=== PATIENT | male | born 1985 | race Caucasian/White ===

== ENCOUNTER 2018-12-17 12:50 | Emergency (ER) | payer OTHER ==
[2018-12-17] MEDS ORDERED: Proparacaine 0.5% Ophth Soln 15 ML Bottle EYELF ONE (13:14)
[2018-12-17] MEDS ORDERED: Fluorescein 1 MG Ophth Strip EYELF ONE (13:14)
--- NOTE | 2018-12-17 13:57 | EDM.PDOC ---
<Susie Lowe Bridgett - Last Filed: 12/17/18 14:40> ED HPI GENERAL MEDICAL PROBLEM - General Chief Complaint: Eye Problems Stated Complaint: CHEMICALS IN LT EYE Time Seen by Provider: 12/17/18 13:21 Source of Information: Reports: Patient, RN Notes Reviewed History Limitations: Reports: No Limitations - History of Present Illness INITIAL COMMENTS - FREE TEXT/NARRATIVE: Patient is a 33-year-old male who presents to the ED for evaluation of a left eye injury. He states that yesterday while at work at around 2:30 PM he was working on a pump, and some salt water/methane/oil mixture splashed into his face, this hip before had initially but tripped down into his left eyes. He states he immediately took the contact out at this time. And irrigated the eye with contact solution as much as possible. He relates that today the eye is very reddened, irritated, and his vision is very blurry, he states that he is looking as if he is under water. Patient notes that his vision normally is around 20/40. - Related Data Allergies Allergy/AdvReac Type Severity Reaction Status Date / Time No Known Allergies Allergy Verified 12/17/18 13:18 Home Meds: Home Meds Doxycycline [Vibramycin] 100 mg PO BID #12 tab 12/17/18 [Rx] Tobramycin/Dexamethasone [Tobradex Eye Drops] 2 drop OP QID #1 bottle 12/17/18 [ Rx] Tobramycin/Dexamethasone [Tobradex Eye Ointment] 3.5 gm OP QPM #1 tube 12/17/18 [Rx] ED ROS GENERAL - Review of Systems Review Of Systems: See Below Constitutional: Reports: No Symptoms HEENT: Reports: Eye Pain, Glasses (or contacts), Vision Change (blurred vision in left eye) Respiratory: Reports: No Symptoms Cardiovascular: Reports: No Symptoms Endocrine: Reports: No Symptoms GI/Abdominal: Reports: No Symptoms : Reports: No Symptoms Musculoskeletal: Reports: No Symptoms Skin: Reports: No Symptoms Neurological: Reports: No Symptoms Psychiatric: Reports: No Symptoms Hematologic/Lymphatic: Reports: No Symptoms Immunologic: Reports: No Symptoms ED EXAM GENERAL W FULL EYE - Physical Exam Exam: See Below Exam Limited By: No Limitations General Appearance: Alert, WD/WN, No Apparent Distress Eye Exam: Right Eye: Normal Inspection, Left Eye: Conjunctival Injection, Vision Changes (blurry), Bilateral Eye: EOMI, PERRL Eyelids: Bilateral: Normal Appearance Conjunctiva & Sclera: Right: Normal Appearance, Left: Injected Cornea Exam: Right: Normal Appearance, Left: Corneal Ulcer (to mid cornea, slightly to 3 0'clock laterally), Cloudy Cornea (very mild haziness noted) Extraocular Movements: Bilateral: Intact Pupils: Normal Accommodation Pupillary Size: Bilateral: 3 mm Pupillary Reaction: Bilateral: Brisk Anterior Chamber: Bilateral: Normal Appearance Respiratory/Chest: No Respiratory Distress, Lungs Clear, Normal Breath Sounds, No Accessory Muscle Use, Chest Non-Tender Cardiovascular: Normal Peripheral Pulses, Regular Rate, Rhythm, No Murmur Extremities: Normal Inspection, Normal Capillary Refill Neurological: Alert, Oriented, CN II-XII Intact (grossly), Normal Cognition, No Motor/Sensory Deficits Psychiatric: Normal Affect, Normal Mood Skin Exam: Warm, Dry, Intact, Normal Color, No Rash Course - Vital Signs Last Recorded V/S: Last Vital Signs Temp 36.7 C 12/17/18 13:21 Pulse 65 12/17/18 13:21 Resp 20 12/17/18 13:21 BP 121/66 12/17/18 13:21 Pulse Ox 98 12/17/18 13:21 - Orders/Labs/Meds Meds: Medications Discontinued Medications Generic Name Dose Route Start Last Admin Trade Name Stephenie PRN Reason Stop Dose Admin Doxycycline Hyclate 200 mg 12/17/18 14:17 12/17/18 14:31 Vibramycin PO 12/17/18 14:18 200 mg ONETIME ONE Administration Fluorescein Sodium 1 mg 12/17/18 13:14 12/17/18 14:31 Ful-Bridget EYELF 12/17/18 13:15 Not Given ONETIME ONE Proparacaine HCl 2 ml 12/17/18 13:14 12/17/18 13:46 Proparacaine 0.5% Ophth Soln EYELF 12/17/18 13:15 2 ml ONETIME ONE Administration Tobramycin/Dexamethasone 10 ml 12/17/18 14:16 12/17/18 14:31 Tobradex Ophth Susp EYELF 12/17/18 14:17 Not Given ONETIME ONE - Re-Assessments/Exams Free Text/Narrative Re-Assessment/Exam: 12/17/18 14:24 Patient's since a the ED for evaluation of a left eye chemical injury. Upon just visual inspection and exam, his cornea was slightly hazier than the right, and there was a white-markel lesion noted to the mid cornea just lateral to 3 o' clock position. The pH was checked, and both eyes were within normal limits. I did examine the patient's eyeball with a slit lamp, with Dr. Jung's direction, he appreciated a corneal ulcer at this time, with likely chemical burn-type involvement due to the nature of the spill in the eye. He did phone Dr. Parks, perinatal social worker in [place], and she recommends TobraDex drops 4 times daily, TobraDex ointment nightly for the next couple days and doxycycline twice a day for 7 days, as she states this hasn't anti-inflammatory effect in the cornea. Dr. Parks was kind enough to provide the patient with her cell phone number, and she states that if he gets to [facility] she would go to the office and evaluate him. Patient will be given a prescription for the TobraDex ointment and the continuation of the doxycycline. Departure - Departure Time of Disposition: 14:28 Disposition: Home, Self-Care 01 Condition: Fair Clinical Impression: Chemical burn due to alkali, cornea, left Qualifiers: Encounter type: initial encounter Qualified Code(s): T54.3X1A - Toxic effect of corrosive alkalis and alkali-like substances, accidental (unintentional), initial encounter - Discharge Information *PRESCRIPTION DRUG MONITORING PROGRAM REVIEWED*: No *COPY OF PRESCRIPTION DRUG MONITORING REPORT IN PATIENT DALI: No Prescriptions: Doxycycline [Vibramycin] 100 mg PO BID #12 tab Tobramycin/Dexamethasone [Tobradex Eye Drops] 2 drop OP QID #1 bottle Tobramycin/Dexamethasone [Tobradex Eye Ointment] 3.5 gm OP QPM #1 tube Instructions: Chemical Burn of the Eyes, Adult Referrals: PCP,None [Primary Care Provider] - Forms: ED Department Discharge, ED Return to Work/School Form Additional Instructions: You were evaluated in the ER today for your chemical splash into her left eye. You were examined, and demonstrated a alkaline burn of your left cornea. This resulted in an ulceration of the left cornea. Management of this is an antibiotic/steroid eyedrop called TobraDex, please instill 2 drops 4 times daily until evaluated by ophthalmology, TobraDex ointment, please apply 1 cm ribbon to lower eyelid nightly until told otherwise by ophthalmology, and doxycycline which is an antibiotic, 100 mg twice a day for the next 7 days. These prescriptions were electronically sent to the [facility] located near [facility] in [facility] this pharmacy is open from 12 to 4 PM only today, you will need to go there during this timeframe to obtain these prescriptions. Dr. Parks, who is an perinatal social worker in [place], told us that she would be able to evaluate you when you get to [facility]. Her telephone number is [phone]. She told us to have you call her when you get to [place] and she 'll Beach at the office for evaluation. When discharged from this hospital, please obtain your prescriptions and drive to [place] or have someone drive you if you do not feel that you can drive appropriately due to the blurry vision in your left eye. <Adam Jung - Last Filed: 12/17/18 16:25> ED HPI GENERAL MEDICAL PROBLEM Left Eye Pain Score (Numeric/FACES): 4 Past Medical History Dermatologic History: Reports: Other (See Below) - Past Surgical History Dermatological Surgical History: Reports: Skin Graft Social & Family History - Tobacco Use Smoking Status *Q: Current Every Day Smoker Years of Tobacco use: 14 Packs/Tins Daily: 0.8 - Caffeine Use Caffeine Use: Reports: Coffee, Soda - Recreational Drug Use Recreational Drug Use: No Course - Re-Assessments/Exams Free Text/Narrative Re-Assessment/Exam: 12/17/18 16:23 I was asked to see this patient by physician warehouse assistant Susie Lowe--patient got chemical splashed into his left eye in the workplace yesterday at about 1430 hrs. He washed his eye out immediately and took out his contact lenses. Subsequently he feels continued left eye irritation and only see the ED on the eye chart today. States his vision is very blurred like looking through water. Proparacaine ophthalmic drops cornea was visualized slit lamp exam. I found 2 areas of chemical luz to the surface of the cornea one is in a rain drop or waterfall fashion across the upper cornea between 12 11:00 and measures approximate 3 month millimeters in length. There is also a central pulsatile lesion central cornea due to chemical burn. Cornea itself is thickened and edematous. It is not cloudy. No corneal abrasions identified. The conjunctiva is slightly irritated particular inferior laterally. Discussed case with perinatal social worker Dr. Alonzo--in [place]. The patient lives in [place] and will be traveling back home today. She was willing to see him in the clinic when he reached [place]. She recommends TobraDex ophthalmic drops 2 drops every 6 hours while awake. Tobramycin ointment applied to the lower eyelid at bedtime and doxycycline 100 mg twice daily for 7 days as it hasn't anti- inflammatory effect on the cornea.
[2018-12-17] MEDS ORDERED: Dexamethasone/Tobramycin 0.1-0.3% Ophth Susp 5 ML Bottle EYELF ONE (14:16)
[2018-12-17] MEDS ORDERED: Doxycycline 100 MG Cap PO ONE (14:17)
== END 2018-12-17 14:43 | disposition home or self-care (01) ==
LOC: JD.ED 12:50
DX: T54.3X1A Toxic effect of corrosive alkalis and alkali-like substances, accidental (unintentional), initial encounter (principal); H53.8 Other visual disturbances; F17.200 Nicotine dependence, unspecified, uncomplicated; Y92.89 Other specified places as the place of occurrence of the external cause
CPT/HCPCS: 99283; A9270